=== PATIENT | male | born 1960 | race Caucasian/White ===

== ENCOUNTER → 2016-10-24 | Outpatient (CLI) | payer BC ==
[~2016-10-24] MED LIST: ALEVE220 M1 PO; ASPIRIN (CHILDR81 MG PO; IRBESARTAN-HCT1 EAC1 PO; PRADAXA150 MG PO; PROBIOTIC1 EAC1 PO
== END | disposition disaster alternative care site (69) ==
LOC: GRAD 06:49
DX: R06.09 Other forms of dyspnea (principal); R06.02 Shortness of breath
CPT/HCPCS: A9500; J2785